=== PATIENT | male | born 1960 | race Two or more races ===

== ENCOUNTER 2020-08-15 09:49 | Outpatient (CLI) | payer SELFPAY | END 2020-08-15 23:59 | disposition home or self-care (01) | LOC: MSC 09:49 | PROVIDERS: ATTEND Internal Medicine | DX: R06.00 Dyspnea, unspecified (principal); Z86.16 Personal history of COVID-19; I10 Essential (primary) hypertension; E11.9 Type 2 diabetes mellitus without complications; Z79.84 Long term (current) use of oral hypoglycemic drugs; Z85.46 Personal history of malignant neoplasm of prostate; E83.52 Hypercalcemia; R14.0 Abdominal distension (gaseous); Z95.1 Presence of aortocoronary bypass graft ==